=== PATIENT | male | born 1980 | race Caucasian/White ===

== ENCOUNTER 2016-12-10 02:33 | Emergency (ER) | payer OTHER ==
--- NOTE | 2016-12-10 02:43 | PDOC ---
History of Present Illness - General Stated Complaint: HEART PALPITATIONS Time Seen by Provider: 12/10/16 02:40 - History of Present Illness Initial Comments: 12/10/16 03:23 Patient is a 36-year-old male with a past medical history of gastric sleeve, who presents to the emergency department complaining of palpitations. Patient states that he was using crystal meth since yesterday. He stopped using crystal meth at approximately 5 PM today. Patient states that he snorted the drugs. Patient denies chest pain, shortness of breath, edema, nosebleed, fevers, chills , nausea, vomiting and diarrhea. Patient admits to smoking approximately 3-4 cigarettes daily for the past 5 years, drinking approximately 2-3 alcoholic drinks a day, and "other recreational drug use ". Patient does not want to discuss other drug use. Past History - Travel Traveled outside of the country in the last 30 days: No Close contact w/someone who was outside of country & ill: No - Past Medical History Allergies/Adverse Reactions: Allergies Allergy/AdvReac Type Severity Reaction Status Date / Time No Known Allergies Allergy Verified 12/10/16 03:02 Home Medications: Ambulatory Orders NK [No Known Home Medication] 12/10/16 Review of Systems - Review of Systems Comments:: 12/10/16 03:21 CONSTITUTIONAL: Absent: fever, chills, diaphoresis, generalized weakness, malaise, loss of appetite HEENT: Absent: rhinorrhea, nasal congestion, throat pain, throat swelling, difficulty swallowing, mouth swelling, ear pain, eye pain, visual Changes CARDIOVASCULAR: Absent: chest pain, loss of consciousness, palpitations, irregular heart rate, peripheral edema RESPIRATORY: Absent: cough, shortness of breath, dyspnea with exertion, orthopnea, wheezing, stridor, hemoptysis GASTROINTESTINAL: Absent: abdominal pain, abdominal distension, nausea, vomiting, diarrhea, constipation, melena, hematochezia GENITOURINARY: Absent: dysuria, frequency, urgency, hesitancy, hematuria, flank pain, genital pain MUSCULOSKELETAL: Absent: myalgia, arthralgia, joint swelling SKIN: Absent: rash, itching, pallor HEMATOLOGIC/IMMUNOLOGIC: Absent: easy bleeding, easy bruising, lymphadenopathy, frequent infections ENDOCRINE: Absent: unexplained weight gain, unexplained weight loss, heat intolerance, cold intolerance NEUROLOGIC: Absent: headache, focal weakness or paresthesias, dizziness, unsteady gait, seizure, mental status changes, bladder or bowel incontinence PSYCHIATRIC: Absent: anxiety, depression, suicidal or homicidal ideation, hallucinations. *Physical Exam - Physical Exam Comments: 12/10/16 03:21 GENERAL: Well developed, well nourished. Awake and alert. No acute distress. HEENT: Normocephalic, atraumatic. PERRLA, EOMI. No conjunctival pallor. Sclera are non- icteric. Moist mucous membranes. Oropharynx is clear. NECK: Supple. Full ROM. No JVD. Carotid pulses 2+ and symmetric, without bruits. No thyromegaly. No lymphadenopathy. CARDIOVASCULAR: Regular rate and rhythm. No murmurs, rubs, or gallops. Distal pulses are 2+ and symmetric. PULMONARY: No evidence of respiratory distress. Lungs clear to auscultation bilaterally. No wheezing, rales or rhonchi. ABDOMINAL: Soft. Non-tender. Non-distended. No rebound or guarding. No organomegaly. Normoactive bowel sounds. MUSCULOSKELETAL Normal range of motion at all joints. No bony deformities or tenderness. No CVA tenderness. EXTREMITIES: No cyanosis. No clubbing. No edema. No calf tenderness. SKIN: Warm and dry. Normal capillary refill. No rashes. No jaundice. NEUROLOGICAL: Alert, awake, appropriate. Cranial nerves 2-12 intact. No deficits to light touch and temperature in face, upper extremities and lower extremities. No motor deficits in the in face, upper extremities and lower extremities. Normoreflexic in the upper and lower extremities. Normal speech. Toes are down- going bilaterally. Gait is normal without ataxia. PSYCHIATRIC: Cooperative. Good eye contact. Appropriate mood and affect. ED Treatment Course - LABORATORY CBC & Chemistry Diagram: 12/10/16 02:53 12/10/16 02:53 Medical Decision Making - Medical Decision Making 12/10/16 03:24 Patient is a 36-year-old male with a past medical history of gastric sleeve, who presents to the emergency department complaining of palpitations. Patient states that he was using crystal meth since yesterday. Palpitations most likely due to his crystal meth use. We'll monitor on telemetry at this time. 1.CBC, CMP, cardiac profile, PT/INR, UA, urine tox 2. IV fluids, IV Ativan 3.reevaluate 12/10/16 04:57 Lab work is notable for a slightly elevated CK; otherwise normal. EKG: Sinus Tach with rate of 108 , normal axis, intervals. No acute ST-T wave elevations. Pt. feeling much better after IV fluids. Revitalized and rate now 80. Will DC home at this time. Pt. advised to avoid recreational drugs and drink plenty of fluids. Pt. understands all discharge instructions and all questions were answered at this time. *DC/Admit/Observation/Transfer Diagnosis at time of Disposition: Palpitations, Amphetamine abuse - Discharge Dispostion Admit: No - Patient Instructions Printed Discharge Instructions: DI for Palpitations Additional Instructions: You had palpitations and a fast heart rate today. Your lab work and EKG were normal. Avoid using recreational drugs. Drink plenty of fluids and rest. Eat a bland diet for the next 48 hours including bananas, applesauce, rice and toast. Return to the ED if you have chest pain, worsening palpitations, difficulty breathing or any changes in your symptoms
[2016-12-10] MEDS ORDERED: SODIUM CHLORIDE 1,000 ML IV STA (02:49)
--- NOTE | 2016-12-10 03:00 | PDOC ---
Medical Decision Making - Medical Decision Making 12/10/16 03:00 agree with care from [facility] Amador
[2016-12-10 03:02] VITALS: TEMP 98; BMI 27.8
[2016-12-10 03:03] LABS: BASOPHIL 0.8 % (0-2.0); EOSINOPHIL 3.3 % (0-4.5); MCH 31.6 pg (25.7-33.7); MCHC 34.3 g/dl (32.0-35.9); MEAN CELL VOLUME 92.1 fl (80-96); MEAN PLT VOLUME 7.5 fl (7.5-11.1); NEUTROPHILS 65.9 % (42.8-82.8); PLATELET COUNT 249 K/MM3 (134-434); RDW 12.8 % (11.9-15.9); WHITE BLOOD COUNT 8.5 K/mm3 (4.0-10.0)
[2016-12-10 03:05] LABS: URINE APPEARANCE CLEAR; URINE BILIRUBIN NEGATIVE (NEGATIVE); URINE BLOOD NEGATIVE (NEGATIVE); URINE COLOR STRAW; URINE GLUCOSE (UA) NEGATIVE (NEGATIVE); URINE KETONE NEGATIVE (NEGATIVE); URINE LEUK ESTERASE NEGATIVE (NEGATIVE); URINE NITRITE NEGATIVE (NEGATIVE); URINE PROTEIN NEGATIVE (NEGATIVE)
[2016-12-10 03:13] LABS: URINE MARIJUANA THC NEGATIVE ng/ml (CUTOFF=50)
[2016-12-10] MEDS ORDERED: LORAZEPAM CARPU-JECT 2 MG/ML DISP.SYRIN IVPUSH ONE (03:14)
[2016-12-10 03:16] LABS: INR 1.06 (0.82-1.09); PROTHROMBIN TIME (PATIENT) 11.7 SEC (9.98-11.88)
[2016-12-10] MEDS ORDERED: LORazepam 2 MG/ML SDV VIAL ONE (03:18)
[2016-12-10 03:26] LABS: ALBUMIN 4.2 g/dl (3.4-5.0); ALK PHOS 88 U/L (45-117); ANION GAP 11 (8-16); BILIRUBIN,TOTAL 0.8 mg/dL (0.2-1.0); CALCIUM 8.8 mg/dL (8.5-10.1); CO2 27 mmol/L (21-32); GLUCOSE,RANDOM 80 mg/dL (74-106); SGPT/ALT 36 U/L (12-78); TOT PROT 7.2 g/dl (6.4-8.2)
[2016-12-10 03:27] LABS: SGOT/AST 36 U/L (15-37)
[2016-12-10 03:28] LABS: TROPONIN I < 0.02 ng/ml (0.00-0.05)
[2016-12-10 05:24] VITALS: BP 124/82; PULSE 88
--- NOTE | 2016-12-10 09:18 | EKG ---
Test Reason : Blood Pressure : / mmHG Vent. Rate : 108 BPM Atrial Rate : 108 BPM P-R Int : 142 ms QRS Dur : 100 ms QT Int : 344 ms P-R-T Axes : 051 -70 041 degrees QTc Int : 460 ms SINUS TACHYCARDIA LEFT AXIS DEVIATION CANNOT RULE OUT INFERIOR INFARCT , AGE UNDETERMINED ABNORMAL ECG NO PREVIOUS ECGS AVAILABLE Confirmed by MARVA VAZQUEZ MD ([id number]) on 12/10/2016 9:17:34 AM Referred By: Confirmed By:MARVA VAZQUEZ MD
== END 2016-12-10 05:55 | disposition home or self-care (01) ==
LOC: JER 02:33
PROC: 3E0337Z Introduction of Electrolytic and Water Balance Substance into Peripheral Vein, Percutaneous Approach (ICD-10-PCS; principal; 2016-12-10)
PROC: 3E033NZ Introduction of Analgesics, Hypnotics, Sedatives into Peripheral Vein, Percutaneous Approach (ICD-10-PCS; 2016-12-10)
DX: F15.10 Other stimulant abuse, uncomplicated (principal); F10.10 Alcohol abuse, uncomplicated; F17.210 Nicotine dependence, cigarettes, uncomplicated
CPT/HCPCS: 36415; 71020-TC; 80053; 80307; 81003; 82550; 82553; 84484; 85025; 85610; 93005; 93010; 99282-25